=== PATIENT | male | born 1970 | race American Indian/Alaskan Native ===

== ENCOUNTER 2017-11-03 12:13 | Emergency (ER) | payer SELFPAY ==
[2017-11-03 13:04] VITALS: BP 132/87
[2017-11-03 13:54] LABS: Hematocrit 40.9 % (35.5-45.6); Hemoglobin 13.8 gm/dl (11.8-15.2); Mean Corpuscular HGB Conc 34 % (32-34); Mean Corpuscular Hemoglobin 30 pg (28-32); Mean Corpuscular Volume 89 fl (84-94); Platelet Count 289 K/mm3 (140-440); Red Blood Count 4.59 M/mm3 (3.65-5.03); Red Cell Distribution Width 13.1 % (13.2-15.2)
[2017-11-03 14:09] LABS: BUN/Creatinine Ratio 19; Blood Urea Nitrogen 13 mg/dL (9-20); Calcium 9.2 mg/dL (8.4-10.2); Hemolysis Index 5
--- NOTE | 2017-11-03 14:43 | Emergency Department Report ---
ED Extremity Problem HPI - General Chief complaint: Extremity Problem,Nontraumatic Stated complaint: LEFT FOOT PAIN Time Seen by Provider: 11/03/17 14:32 Source: patient Mode of arrival: Ambulatory Limitations: No Limitations - History of Present Illness Initial comments: This is a 47-year-old type II diabetic who is presenting with left foot discomfort. Patient states for the last 2-3 days he's noticed his left great toe and second digit has swelling he states that there is some mild pain as well. Patient rates his pain about 5 out of 10. Patient denies any fevers chills nausea vomiting. Patient blood sugar this morning was 190 range which is normal for this patient. Patient states the pain is an aching pain - Related Data Home Medications Medication Instructions Recorded Confirmed Last Taken Insulin NPH/Regular [Novolin 70/30] 20 unit SUB-Q BID 06/04/13 06/04/13 20:00 Previous Rx's Medication Instructions Recorded Last Taken Type Fluticasone Propionate [Flonase] 2 sprays NS DAILY #1 spray.susp 06/04/13 Unknown Rx Loratadine [Claritin] 10 mg PO DAILY #30 tablet 06/04/13 Unknown Rx Promethazine [Phenergan] 25 mg PO Q6H PRN #20 tablet 06/04/13 Unknown Rx Sulfamethoxazole/Trimethoprim 1 each PO BID #20 tablet 06/04/13 Unknown Rx [Bactrim DS] Clindamycin [Clindamycin CAP] 300 mg PO Q8H 7 Days cap 11/03/17 Unknown Rx HYDROcodone/APAP 5-325 [Goldsmith 1 each PO Q6HR PRN #15 tablet 11/03/17 Unknown Rx 5/325] Ibuprofen [Motrin] 800 mg PO Q8HR PRN #20 tablet 11/03/17 Unknown Rx Allergies Allergy/AdvReac Type Severity Reaction Status Date / Time No Known Allergies Allergy Verified 10/20/14 01:27 ED Review of Systems ROS: Stated complaint: LEFT FOOT PAIN Other details as noted in HPI Comment: All other systems reviewed and negative ED Past Medical Hx - Past Medical History Hx Hypertension: Yes Hx Diabetes: Yes - Surgical History Additional Surgical History: l) eye surg. CATARACT SURGERY - Social History Smoking Status: Never Smoker Substance Use Type: None - Medications Home Medications: Home Medications Medication Instructions Recorded Confirmed Last Taken Type Fluticasone Propionate [Flonase] 2 sprays NS DAILY #1 spray.susp 06/04/13 Unknown Rx Insulin NPH/Regular [Novolin 70/30] 20 unit SUB-Q BID 06/04/13 06/04/13 20:00 History Loratadine [Claritin] 10 mg PO DAILY #30 tablet 06/04/13 Unknown Rx Promethazine [Phenergan] 25 mg PO Q6H PRN #20 tablet 06/04/13 Unknown Rx Sulfamethoxazole/Trimethoprim 1 each PO BID #20 tablet 06/04/13 Unknown Rx [Bactrim DS] Clindamycin [Clindamycin CAP] 300 mg PO Q8H 7 Days cap 11/03/17 Unknown Rx HYDROcodone/APAP 5-325 [Goldsmith 1 each PO Q6HR PRN #15 tablet 11/03/17 Unknown Rx 5/325] Ibuprofen [Motrin] 800 mg PO Q8HR PRN #20 tablet 11/03/17 Unknown Rx ED Physical Exam - General Limitations: No Limitations General appearance: alert, in no apparent distress - Head Head exam: Present: atraumatic, normocephalic - Eye Eye exam: Present: normal appearance - ENT ENT exam: Present: mucous membranes moist - Neck Neck exam: Present: normal inspection - Respiratory Respiratory exam: Present: normal lung sounds bilaterally. Absent: respiratory distress - Cardiovascular Cardiovascular Exam: Present: regular rate, normal rhythm. Absent: systolic murmur, diastolic murmur, rubs, gallop - GI/Abdominal GI/Abdominal exam: Present: soft, normal bowel sounds - Rectal Rectal exam: Present: deferred - Extremities Exam Extremities exam: Present: normal inspection, other (the patient's left foot his great toe and his second toe which both show some mild swelling and some erythema. The dorsal surface of the second toe there is some blistering of the skin on the distal tip of the great toe there is some blistering of the skin. Some mild hyperpigmentation to this event overlying skin. There is mild tenderness. There is no warmth. Patient has good capillary refill ex.) - Back Exam Back exam: Present: normal inspection - Neurological Exam Neurological exam: Present: alert, oriented X3 - Psychiatric Psychiatric exam: Present: normal affect, normal mood - Skin Skin exam: Present: warm, dry, intact, normal color. Absent: rash ED Course Vital Signs 11/03/17 13:00 Temperature 98.4 F Pulse Rate 87 Blood Pressure 132/87 O2 Sat by Pulse 98 Oximetry ED Medical Decision Making - Lab Data Result diagrams: 11/03/17 13:16 11/03/17 13:16 - Medical Decision Making Patient is exhibiting early signs of infection to his left great and second toes. Patient's white count within normal limits he is afebrile. We will trial the patient on antibiotics at home with the instructions that he is to come back if this begins to worsen. Patient will be given orthopedic follow-up as well. Critical care attestation.: If time is entered above; I have spent that time in minutes in the direct care of this critically ill patient, excluding procedure time. ED Disposition Clinical Impression: Toe infection Disposition: DC-01 TO HOME OR SELFCARE Is pt being admited?: No Does the pt Need Aspirin: No Condition: Stable Instructions: Cellulitis (ED) Referrals: BARRY GIORDANO MD [Staff Physician] - 3-5 Days
== END 2017-11-03 15:03 | disposition home or self-care (01) ==
LOC: ED 12:13
DX: L08.9 Local infection of the skin and subcutaneous tissue, unspecified (principal); I10 Essential (primary) hypertension; E11.9 Type 2 diabetes mellitus without complications; Z79.4 Long term (current) use of insulin
CPT/HCPCS: 36415; 80048; 85027; 99282